=== PATIENT | male | born 1940 | race Caucasian/White ===

== ENCOUNTER → 2023-03-14 08:50 | Outpatient (BNVA) | payer MEDICARE, SELFPAY | PROVIDERS: Family Provider Family Medicine; PCP Family Medicine; Visit Provider Family Medicine | DX: E78.5 Hyperlipidemia, unspecified | CPT/HCPCS: 80053; 80061 ==

== ENCOUNTER → 2023-10-05 09:50 | Outpatient (BNVA) | payer MEDICARE, SELFPAY | PROVIDERS: Family Provider Family Medicine; PCP Family Medicine; Visit Provider Family Medicine | DX: I10 Essential (primary) hypertension (principal); E78.5 Hyperlipidemia, unspecified | CPT/HCPCS: 80053; 80061 ==

== ENCOUNTER → 2024-05-09 08:51 | Outpatient (BNVA) | payer MEDICARE, OTHER, SELFPAY | PROVIDERS: Family Provider Family Medicine; PCP Family Medicine; Visit Provider Family Medicine | DX: I10 Essential (primary) hypertension (principal); E78.5 Hyperlipidemia, unspecified | CPT/HCPCS: 80053; 80061 ==

== ENCOUNTER → 2024-10-24 11:15 | Outpatient (BNVA) | payer MEDICARE, OTHER, SELFPAY | PROVIDERS: Family Provider Family Medicine; PCP Family Medicine; Visit Provider Family Medicine | DX: I10 Essential (primary) hypertension (principal); E78.5 Hyperlipidemia, unspecified | CPT/HCPCS: 80053; 80061 ==

== ENCOUNTER 2024-12-30 12:40 | Outpatient (CLI) | payer MEDICARE, OTHER, SELFPAY ==
--- NOTE | 2024-12-30 12:54 | XR_ITS ---
WS: [id number] Exam: XR tibia fibula LT 2V [id number] Date/Time of Exam: 12/30/2024 12:55 PM Reason For Exam: lower leg pain No fracture identified. Articular relationships are intact. There is early degenerative change of the lateral joint compartment of the knee. No soft tissue foreign bodies are seen. IMPRESSION1. No fracture. 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
--- NOTE | 2024-12-30 12:54 | XR_ITS ---
WS: [id number] Exam: XR hip LT 2-3V wo/w pel* [id number] Date/Time of Exam: 12/30/2024 12:55 PM Reason For Exam: hip pain No acute fracture. Mild DJD of the acetabulum. Soft tissues are unremarkable. XR/XR hip LT 2-3V wo/w pel* [id number] IMPRESSION: 1. Minimal degenerative change. No fracture.
== END 2024-12-30 12:41 | disposition home or self-care (01) ==
PROVIDERS: Family Provider Family Medicine; PCP Family Medicine; Visit Provider Family Medicine
DX: R60.9 Edema, unspecified (principal); I10 Essential (primary) hypertension; M17.12 Unilateral primary osteoarthritis, left knee
CPT/HCPCS: 73502; 73590; 80053; 83880; 84443; 85025; 85379

== ENCOUNTER 2025-01-17 07:56 | Outpatient (CLI) | payer MEDICARE, OTHER, SELFPAY ==
--- NOTE | 2025-01-17 08:00 | USCV_ITS ---
Vineet Plata Age: 84 Gender: M : 1940 Exam Date: 01/17/2025 08:09 Ordering Phys: Jarrett Abraham MD Technologist: GARRICK Exam Location: [facility] – [place] Indication: Edema BP: 148 / 85 HR: 90 Rhythm: Sinus Technical Quality: Adequate MEASUREMENTS (Male / Female) Normal Values 2D ECHO LV Diastolic Diameter PLAX 4.7 cm 4.2 - 5.9 / 3.9 - 5.3 cm IVS Diastolic Thickness 1.4 cm 0.6 - 1.0 / 0.6 - 0.9 cm IVS Systolic Thickness 1.8 cm LVPW Diastolic Thickness 1.6 cm 0.6 - 1.0 / 0.6 - 0.9 cm LVPW Systolic Thickness 1.7 cm LVOT Diameter 2.1 cm LV Ejection Fraction 2D Teich 55.0 % LV Ejection Fraction MOD 4C 54.7 % LV Ejection Fraction MOD 2C 56.0 % LV Ejection Fraction 2C AL 58.1 % LA Diameter 4.3 cm RA Systolic Volume 4C AL 84.7 ml RA Systolic Volume 4C MOD 81.1 ml LA Sys Volume AL 92.0 cm cubed LA Sys Volume Index AL 44.4 cm cubed/m squared Aorta at Sinotubular Diameter 2.9 cm IVC Diameter 2.0 cm M-MODE LA Ao Ratio MM 1.5 AV Cusp Separation MM 1.7 cm DOPPLER AV Peak Velocity 105.0 cm/s LVOT Peak Velocity 69.0 cm/s AV Area Cont Eq vti 2.0 cm squared AV Area Cont Eq pk 2.2 cm squared MV Peak Velocity 86.0 cm/s MV Area PHT 6.2 cm squared Mitral E to A Ratio 4.4 TV Peak Velocity 173.5 cm/s TR Peak Velocity 246.0 cm/s TR Peak Gradient 24.2 mmHg TV Peak E Velocity 75.0 cm/s PV Peak Velocity 79.0 cm/s FINDINGS Left Ventricle Left ventricle is normal in size. LV systolic function is normal with EF of 55-60%. No regional wall motion abnormalities are seen. Diastolic function is indeterminate because of atrial fibrillation. Right Ventricle Normal in size and function Right Atrium Dilated Left Atrium Dilated Mitral Valve Structurally normal mitral valve. Mild mitral regurgitation. Aortic Valve Aortic valve is thickened. No significant stenosis. Mild aortic regurgitation. Tricuspid Valve Mild tricuspid regurgitation. Pulmonary artery systolic pressures normal Pulmonic Valve Not well visualized Pericardium Normal Aorta Normal in size IVC Appears to be normal CONCLUSIONS LV systolic function is normal with EF of 55-60%. Diastolic function is indeterminate because of atrial fibrillation. Biatrial enlargement. Mild mitral regurgitation. Mild aortic regurgitation. Mild tricuspid regurgitation. Bernardo Caldera MD (Electronically Signed) Final Date: 22 January 2025 12:47 S
== END 2025-01-17 07:57 | disposition home or self-care (01) ==
LOC: RAD 07:57
PROVIDERS: PCP Family Medicine; Visit Provider Family Medicine
DX: R06.00 Dyspnea, unspecified (principal); R60.9 Edema, unspecified; I48.91 Unspecified atrial fibrillation; R93.1 Abnormal findings on diagnostic imaging of heart and coronary circulation; I34.0 Nonrheumatic mitral (valve) insufficiency; I35.8 Other nonrheumatic aortic valve disorders; I35.0 Nonrheumatic aortic (valve) stenosis; I07.1 Rheumatic tricuspid insufficiency
CPT/HCPCS: 93306

== ENCOUNTER 2025-04-18 13:21 | Outpatient (CLI) | payer MEDICARE, OTHER, SELFPAY ==
--- NOTE | 2025-04-18 13:45 | MR_ITS ---
WS: [id number] MRI LEFT KNEE HISTORY: left leg pain COMPARISON: None available. Anterior cruciate ligament: Intact. Posterior cruciate ligament: Intact. Medial collateral ligament: Mild MCL sprain. MCL is being displaced from the joint line by the extruded meniscus. Posterior lateral corner structures: Intact. Medial menisci: Small caliber posterior meniscus with a horizontal tear extending to the inferior articular surface. There is also blunting of the free edge. Signal changes extend into the meniscal root. Meniscus is extruded from the joint and the meniscal tear extends into the extruded portion of the meniscus. Lateral meniscus: Intact. Normal signal, size and shape. Extensor mechanism: Distal quadriceps tendon and patellar tendons are intact. Fluid and soft tissue: No joint effusion. No Gold's cyst. Osseous and articular structures: Patellofemoral compartment: Moderate narrowing patellofemoral joint space with diffuse loss of cartilage. No marrow edema or fracture. Medial compartment: Moderate narrowing the medial compartment. Diffuse chondromalacia with small marginal osteophytes. Lateral compartment: Moderate narrowing of the lateral compartment with marginal osteophytes. Full-thickness cartilage defect on the weightbearing surface of the femoral condyle. Loss of cartilage more focally along the mid lateral tibial plateau. MR/MR knee LT wo con* [id number] IMPRESSION: 1. Mild MCL sprain with displacement from the joint line by an extruded menisc us. 2. Complex tear posterior horn medial meniscus. The meniscus is extruded from the joint and the meniscal tear extends into the extruded portion of the menisc us. 3. Moderate narrowing of all 3 compartments with diffuse loss of cartilage. 4. 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 5. No fractures or marrow edema.
--- NOTE | 2025-04-18 14:30 | MR_ITS ---
WS: [id number] MRI LEFT LOWER EXTREMITY WITHOUT CONTRAST. COMPARISON: Radiograph 12/30/2024 Multiplanar, multisequence imaging is performed without contrast. No acute marrow edema or fracture within the LEFT tibia or fibula. There is mild soft tissue edema throughout the lower extremity. This is diffuse edema within the soft tissues predominantly but a small amount of intramuscular edema. No mass is identified. There are a few prominent veins in the lower extremity from varicosities. No thrombosed veins identified. Perforating muscular vein extending between the medial and lateral gastrocnemius muscles. This is probably arising from the posterior tibial vein. MR/MR lower leg LT wo con* [id number] IMPRESSION: 1. No soft tissue mass identified. 2. Prominent perforating muscular varicosity noted in the mid calf. Probably a rising from the posterior tibial vein. No thrombus identified. Suspect venous i nsufficiency.
== END 2025-04-18 13:22 | disposition home or self-care (01) ==
LOC: RAD 13:23
PROVIDERS: PCP Family Medicine; Visit Provider Family Medicine
DX: M79.662 Pain in left lower leg (principal); I83.92 Asymptomatic varicose veins of left lower extremity; R60.0 Localized edema; S83.412A Sprain of medial collateral ligament of left knee, initial encounter; S83.232A Complex tear of medial meniscus, current injury, left knee, initial encounter; X58.XXXA Exposure to other specified factors, initial encounter; M94.262 Chondromalacia, left knee; M25.762 Osteophyte, left knee
CPT/HCPCS: 73718; 73721